=== PATIENT | male | born 1995 | race African-American/Black ===

== ENCOUNTER 2017-08-12 19:18 | Emergency (ER) | payer OTHER ==
[~2017-08-12] VITALS: Ht 193 cm; Wt 160.0 kg
[2017-08-12 19:26] VITALS: TEMP 36.9; Ht 193 cm; Wt 160.0 kg
[2017-08-12 23:13] VITALS: BP 133/79; PULSE 102; O2SAT 93
--- NOTE | 2017-08-13 02:33 | EMERGENCY ROOM VISIT NOTE ---
History First contact with patient: 19:21 Chief Complaint: ALCOHOL OVERDOSE Stated Complaint: ETOH Nursing Triage Summary: found passed out by soccer shen, unknown amt alcohol History of Present Illness The patient is a 21 year old male who presents to the Emergency Room via BLS ambulance for evaluation of an alcohol intoxication. The patient was found passed out on a soccer field. The patient admits to moderate alcohol consumption today, and reports that he just stumbled and fell. He did not have any friends with him, and was brought to the emergency department. He denies any other injuries from his fall, and denies any illicit drug use. Review of Systems 10 system review was performed and was negative except for pertinent positives and negatives as indicated in history of present illness Past Medical/Surgical History Medical Problems: (1) No significant past medical history Surgical Problems: (1) No history of previous surgery Family History Unremarkable Social History Smoking Status: Never Smoker Alcohol Use: occasionally Marital Status: single Occupation Status: [employer] student Current/Historical Medications Unable to Obtain Active Prescriptions or Reported Meds Physical Exam Vital Signs Date Time Temp Pulse Resp B/P (MAP) Pulse Ox O2 Delivery O2 Flow Rate FiO2 08/12/17 23:13 102 20 133/79 93 08/12/17 22:37 102 20 117/80 94 Room Air 08/12/17 21:49 Room Air 08/12/17 21:23 109 18 111/60 94 Room Air 08/12/17 20:00 87 16 110/60 94 Room Air 08/12/17 19:30 90 18 111/76 94 Room Air 08/12/17 19:26 36.9 103 18 128/74 96 Room Air Physical Exam CONSTITUTIONAL: Healthy and well nourished. Alert and oriented X 3 with positive affect. Smell of EtOH is present. GCS 15. The patient is pleasant and cooperative. HEENT: Normocephalic, atraumatic. Pupils equal, round and reactive. No epistaxis, hemotympanum, raccoon's eyes or Richardson sign. NECK: Full active range of motion without discomfort. RESPIRATORY: Clear to auscultation bilaterally with no wheezing, crackles, rhonchi or stridor. CARDIOVASCULAR: Regular rate and rhythm with no murmurs, rubs or gallops. GASTROINTESTINAL: Bowel sounds present in all quadrants. MUSCULOSKELETAL: Full range of motion of all joints without discomfort. INTEGUMENTARY: No rash or other significant dermatologic conditions noted. NEUROLOGIC: No focal neurologic deficits noted. Medical Decision & Procedures ED Course Patient history and physical exam were performed. Nurse's notes were reviewed. Vital signs were reviewed and were also normal. The patient was cooperative with exam and pleasant. 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 My intention was to order a blood alcohol level for further treatment and disposition planning. There were multiple alcohol overdose patients in the department, and I forgot to order the blood alcohol level. The patient was observed in the emergency department for 3 hours, was watching television and reported feeling fine. The patient was instructed to [place] well-hydrated today, avoiding any further alcohol consumption. He was instructed to drink in moderation and responsibly. He was instructed to follow-up with the [facility], and follow- up with [facility] as needed for any further symptoms. The patient was happy with plan of care, voiced understanding of all discharge instructions, and discharged with sober friends. Medical Decision Head Trauma GCS Score: 15 Blood Pressure Screening Patient's blood pressure: Normal blood pressure Impression Primary Impression: Alcohol use with intoxication Departure Information Dispostion Home / Self-Care Condition GOOD Prescriptions Unable to Obtain Active Prescriptions or Reported Meds Referrals No Doctor, Assigned (PCP) Forms HOME CARE DOCUMENTATION FORM, IMPORTANT VISIT INFORMATION Patient Instructions [facility] [employer] Students and Alcohol Related Visits Additional Instructions Rest and remain well hydrated, avoiding any alcohol consumption over the next 24 hours. Drink in moderation in the future.
== END 2017-08-12 23:14 | disposition home or self-care (01) ==
LOC: EDBD 19:18 → C.EDD 19:20
DX: F10.129 Alcohol abuse with intoxication, unspecified (principal)